=== PATIENT | female | born 1980 | race Caucasian/White ===

== ENCOUNTER 2016-09-07 17:26 | Emergency (ER) | payer OTHER ==
[2016-09-07] MEDS ORDERED: LIDOCAINE HCL 2% (VISCOUS) 20 ML SOL ONE (17:56)
[2016-09-07] MEDS ORDERED: ALUMINUM/MAGNESIUM 30 ML SUS ONE (17:56)
[2016-09-07] MEDS: LIDOCAINE HCL 2% (VISCOUS) 20 ML SOL MT ONE (17:58)
[2016-09-07] MEDS: ALUMINUM/MAGNESIUM 30 ML SUS PO ONE (17:58)
[2016-09-07 18:14] VITALS: RESP 16; TEMP 99.2
[2016-09-07] MEDS ORDERED: ONDANSETRON 4 MG ODT ONE (18:19)
[2016-09-07] MEDS: ONDANSETRON 4 MG ODT BU ONE (18:20)
[2016-09-07 18:24] LABS: BASOPHILS % (AUTO) 1 % (0-3); EOSINOPHILS % (AUTO) 2 % (0-9); HEMATOCRIT 44 % (35-47); MEAN CORPUSCULAR HGB CONC 34.9 gm/dl (32.0-36.0); MEAN CORPUSCULAR VOLUME 85 fL (81-99); MONOCYTES % (AUTO) 6.2 % (0-12); NEUTROPHILS % (AUTO) 63.3 % (37-80)
[2016-09-07 18:35] LABS: APPEARANCE,URINE Clear; BILIRUBIN,URINE NEGATIVE (NEGATIVE); COLOR,URINE Yellow; GLUCOSE, URINE (UA) NEGATIVE (NEGATIVE); KETONES,URINE NEGATIVE (NEGATIVE); LEUKOCYTE ESTERASE ,URINE NEGATIVE (NEGATIVE); NITRATE,URINE NEGATIVE (NEGATIVE); OCCULT BLOOD,URINE NEGATIVE (NEG-TRACE); UROBILINOGEN,URINE 0.2 (0.2-1.0 EU)
[2016-09-07 18:37] LABS: ALBUMIN 4.1 gm/dl (3.4-5.0)
[2016-09-07 18:42] LABS: RBC,URINE 0-2 (0-3AV/HPF); WBC,URINE 0-2 (0-5AV/HPF)
[2016-09-07 18:51] VITALS: BP 112/78; PULSE 86; O2SAT 98
== END 2016-09-07 19:02 | disposition home or self-care (01) | DRG 392 ==
LOC: ED 17:26
DX: K21.9 Gastro-esophageal reflux disease without esophagitis (principal)
CPT/HCPCS: 80053; 81001; 82150; 85025; 99282; 99283

== ENCOUNTER 2016-10-25 22:44 | Emergency (ER) | payer OTHER ==
[2016-10-25] MEDS ORDERED: LORAZEPAM 0.5 MG TAB PO ONE (23:17)
[2016-10-25] MEDS ORDERED: LORAZEPAM 0.5 MG TAB ONE (23:21)
[2016-10-26 00:10] VITALS: RESP 18; O2SAT 100
[2016-10-26 00:33] VITALS: BP 120/79; PULSE 83; TEMP 98
== END 2016-10-26 00:58 | disposition home or self-care (01) | DRG 392 ==
LOC: ED 22:44
DX: R10.2 Pelvic and perineal pain (principal)
CPT/HCPCS: 74177; 99283; 99284; Q9967

== ENCOUNTER 2018-07-30 10:14 | Emergency (ER) | payer OTHER ==
[2018-07-30] MEDS ORDERED: PROCHLORPERAZINE EDISYLATE 5 MG/ML SOL IV ONE (10:59)
[2018-07-30] MEDS ORDERED: SODIUM CHLORIDE 0.9% FLUSH 10 ML SOL IV PRN (11:00)
[2018-07-30] MEDS ORDERED: SODIUM CHLORIDE 0.9% 1000ML 1,000 ML IV SCH (11:00)
[2018-07-30] MEDS ORDERED: KETOROLAC TROMETHAMINE 30 MG/ML SOL IV ONE (11:00)
[2018-07-30] MEDS ORDERED: PANTOPRAZOLE SODIUM 40 MG/10 ML PDS IV ONE (11:05)
[2018-07-30] MEDS ORDERED: SODIUM CHLORIDE 0.9% 1000ML 1,000 ML IV ONE (11:08)
[2018-07-30] MEDS ORDERED: PROCHLORPERAZINE EDISYLATE 5 MG/ML SOL ONE (11:11)
[2018-07-30] MEDS ORDERED: KETOROLAC TROMETHAMINE 30 MG/ML SOL ONE (11:11)
[2018-07-30] MEDS ORDERED: PANTOPRAZOLE SODIUM 40 MG/10 ML PDS ONE (11:11)
[2018-07-30 11:15] LABS: HEMATOCRIT 44 % (35-47); MEAN CORPUSCULAR HEMOGLOBIN 28.3 pg (27.0-32.0); MEAN CORPUSCULAR VOLUME 88 fL (81-99)
[2018-07-30 11:21] LABS: BILIRUBIN,TOTAL 0.4 mg/dl (0.2-1.0); CALCIUM 9.4 mg/dl (8.5-10.1); CARBON DIOXIDE 27.1 mEq/L (21-32); CREATININE 0.77 mg/dl (0.60-1.00); POTASSIUM 3.3 mMol/L (3.5-5.1); TOTAL PROTEIN 7.3 gm/dl (6.4-8.2)
[2018-07-30 11:35] LABS: BAND NEUTROPHILS % (MANUAL) 47 %; NEUTROPHILS % (MANUAL) 11 % (37-80)
[2018-07-30 11:36] LABS: BASOPHILS % (MANUAL) 2 % (0-3); EOSINOPHILS % (MANUAL) 1 % (0-9); LYMPHOCYTES % (MANUAL) 28 % (10-50); MONOCYTES % (MANUAL) 11 % (0-12); NORMAL RBCS PRESENT
[2018-07-30] MEDS ORDERED: LORAZEPAM 2 MG/ML 10ML MDV 2 MG/ML VIAL IV ONE (11:45)
[2018-07-30] MEDS ORDERED: CIPROFLOXACIN HCL 500 MG TAB PO SCH (11:45)
[2018-07-30] MEDS ORDERED: LORAZEPAM 2 MG/ML SOL ONE (11:46)
[2018-07-30] MEDS ORDERED: CIPROFLOXACIN HCL 500 MG TAB PO ONE ×2 (11:55→12:10)
[2018-07-30 11:56] VITALS: BP 114/79; PULSE 75; RESP 20; TEMP 98.1; O2SAT 97
== END 2018-07-30 12:30 | disposition home or self-care (01) | DRG 392 ==
LOC: ED 10:14
DX: R19.7 Diarrhea, unspecified (principal); K52.9 Noninfective gastroenteritis and colitis, unspecified
CPT/HCPCS: 80053; 85007; 85027; 96365; 96374; 96375; 99283; 99285; J0780; J1885; J2060; A9270-GY